=== PATIENT | male | born 1970 ===

== ENCOUNTER → 2020-02-14 | Outpatient (CLI) | payer OTHER ==
[~2020-02-14] MED LIST: [UNRECOGNIZED DRUG - REMARK]
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
== END | disposition home or self-care (01) ==
LOC: PNCL 08:18
PROVIDERS: ATTEND Anesthesiology
DX: M54.5 Low back pain (principal); M19.90 Unspecified osteoarthritis, unspecified site; G89.4 Chronic pain syndrome; Z98.890 Other specified postprocedural states
CPT/HCPCS: G0463

== ENCOUNTER → 2020-02-28 | Outpatient (CLI) | payer OTHER ==
[~2020-02-28] MED LIST changes: +BUPIVACAINE MPF 0.25% 10 ML VIAL. ONE; +IOHEXOL 180 MG/ML 10 ML VIAL. ONE; +methylPREDNISolone ACETATE 40 MG/ML VIAL. ONE; +methylPREDNISolone ACETATE 80 MG/ML VIAL. ONE
--- NOTE | 2020-02-28 08:47 | PDOC ---
Progress Note - Pain Clinic Date of Service: DOS: DATE: 02/28/20 TIME: 08:44 Diagnosis: Dx: Lumbar degenerative disc disease with lumbar and lumbosacral spondylosis History or Present Illness: HPI: 49-year male returns follow-up status post initial evaluation preauthorization for bilateral facet joint injections. Patient ports still significant pain in the low back bilaterally right slightly greater than left but present bilaterally in the low back itself with occasional radiation of the posterior gluteus but not into the lower extremities. Patient points to a 7 on scale 10 is worse with the past week for an average for his lesions for today patient describes as sharp and tight cramping sometimes constant with walking standing changing positions or prolonged sitting. Patient reports no new motor or sensory deficits no new bowel or bladder incontinence reports it wakes him sleep occasionally but not more than every 7 hours. Patient also has some pain in the neck as well as the upper back but his low back pain is his main complaint. Physical Exam: VS: Blood pressure is 154/86 pulse 67 respirations 18 temperature 97.6 3 Fahrenheit weight is 176 pounds PE: PHYSICAL EXAMINATION: GENERAL: The patient is awake, alert, oriented, appropriate, very pleasant demeanor HEENT: Shows normocephalic, atraumatic. Extraocular movements are intact and symmetrical. Oral cavity: Mucous membranes moist and pink. Dentition is intact. NECK: Shows anterior throat supple without palpable lymphadenopathy noted. Swallow reflex symmetrical. CHEST: Shows normal on inspection. Breath sounds are clear bilaterally. HEART: Shows S1, S2 clear. No murmurs auscultated. ABDOMEN: Soft, nontender, nondistended. No palpable organomegaly is noted. No rebound or guarding demonstrated. BACK: Shows spine grossly in the midline. Normal-appearing cervical lordotic curvature. There is slightly increased thoracic kyphosis, some minor flattening of the lumbar lordotic curvature. Lumbar paraspinous muscles show symmetrical on inspection, on palpation shows some moderate tenderness diffusely throughout the upper, middle and lower distribution of the paraspinous muscles bilaterally and also into the lower thoracic paraspinous musculature, firm and tender, but without specific trigger points, without radiation of pain. The patient has good rotational motion of the lumbar spine, both laterally as well as extension and flexion without significant difficulty. No tenderness over the spinous processes, sacrum or sacroiliac regions. EXTREMITIES: Lower extremities show deep tendon reflexes 2+ in the patellar and tendo calcaneus tendons. Motor exam is 5 on a scale of 5 with right dorsiflexion, extension, quadriceps and hamstring flexion and 5/5 on the left. Peripheral pulses are 2+ posterior tibial. [] peripheral edema is noted bilaterally. Lower extremities are warm and dry to touch, equal in color and appearance. SKIN: Shows warm and dry, good turgor. No edema. No sores, rashes or bruising throughout. Procedure: Procedure: Options were discussed with the patient. Patient's old chart was reviewed his current medication regimen updated current review of systems updated today as well and we will proceed with a bilateral L4-5 and L5-S1 facet joint injections. Risks again discussed including but not limited to bleeding infection possibility of endovascular injection sequelae epidural hematoma subsequent neurological compromise dural puncture headache spinal cord and nerve damage side effects steroid medication and portals chronic pain control. Patient understands wished to proceed. Patient return to clinic in approximate 2 weeks for follow-up was counseled as to return appointment activity level and side effects to be aware. Medication Injected: Med Injected: Under sterile prep and drape using C-arm fluoroscopic guidance AP and lateral and oblique views, bilateral L4-5 and L5-S1 facet joint injections, medications injected: 120 mg Depo-Medrol +4 cc 0.25% bupivacaine +2 cc contrast. Condition at discharge stable patient tolerated the procedure well and no complications. Condition at Discharge: Condition at Discharge: Condition at discharge is stable patient tolerated the procedure well had no complications BIMAL LAI MD Feb 28, 2020 08:47
== END | disposition home or self-care (01) ==
LOC: PNCL 08:17
PROVIDERS: ATTEND Anesthesiology
DX: M47.817 Spondylosis without myelopathy or radiculopathy, lumbosacral region (principal); M51.36 Other intervertebral disc degeneration, lumbar region; Z98.890 Other specified postprocedural states
CPT/HCPCS: 64635; 64636; J1030; J1040; J3490; Q9965

== ENCOUNTER → 2020-03-13 | Outpatient (CLI) | payer OTHER ==
--- NOTE | 2020-03-13 10:14 | PDOC ---
Progress Note - Pain Clinic Date of Service: DOS: DATE: 03/13/20 TIME: 10:09 Diagnosis: Dx: Lumbar degenerative disc disease with lumbar and lumbosacral spondylosis History or Present Illness: HPI: 49-year male returns follow-up status post bilateral L4-5 and L5-S1 facet joint injections. Patient reports about 75 to 80% improvement initially for the first week to 2 weeks patient reports the pain was decreased with pain returning now in the low back bilaterally slightly worse on the right than left patient which is worse with walking standing running changing positions extension of the lumbar spine and loading of the axial lumbar spine as well. Patient reports an 8 on a scale of 10 is worse over the past week 5 on average 3 at its least is a 5 today patient endorses stabbing radiating aching sharp at times tight in the back more in the middle and to the right but also on the left patient reports no new motor or sensory deficits does not awaken from sleep at night better with laying down or sitting but again much worse with walking standing especially with exercise and running. Physical Exam: VS: Blood pressure 123/85 pulse 61 respirations 18 temperature 97.5 F height is 70 inches and weight is 179 pounds PE: PHYSICAL EXAMINATION: GENERAL: The patient is awake, alert, oriented, appropriate, very pleasant demeanor HEENT: Shows normocephalic, atraumatic. Extraocular movements are intact and symmetrical. Oral cavity: Mucous membranes moist and pink. NECK: Shows anterior throat supple without palpable lymphadenopathy noted. Swallow reflex symmetrical. CHEST: Shows normal on inspection. Breath sounds are clear bilaterally, no rales rhonchi wheezes auscultated. HEART: Shows S1, S2 clear. No murmurs auscultated. ABDOMEN: Soft, nontender, nondistended. No palpable organomegaly is noted. No rebound or guarding demonstrated. BACK: Shows spine grossly in the midline. Normal-appearing cervical lordotic curvature. There is slightly increased thoracic kyphosis, some minor flattening of the lumbar lordotic curvature. Lumbar paraspinous muscles show symmetrical on inspection, on palpation shows some moderate tenderness diffusely throughout the upper, middle and lower distribution of the paraspinous muscles bilaterally and also into the lower thoracic paraspinous musculature, firm and tender, but without specific trigger points, without radiation of pain. The patient has good rotational motion of the lumbar spine, both laterally as well as extension and flexion without significant difficulty. No tenderness over the spinous processes, sacrum or sacroiliac regions. EXTREMITIES: Lower extremities show deep tendon reflexes 2+ in the patellar and tendo calcaneus tendons. Motor exam is 5 on a scale of 5 with right dorsiflexion, extension, quadriceps and hamstring flexion and 5/5 on the left. Peripheral pulses are 2+ posterior tibial. no peripheral edema is noted bilaterally. Lower extremities are warm and dry to touch, equal in color and appearance. SKIN: Shows warm and dry, good turgor. No edema. No sores, rashes or bruising throughout. Procedure: Procedure: Options were discussed with the patient. Patient will chart reviews her current medication regimen updated current review of systems updated today as well. We will proceed with a bilateral L4-5 and L5-S1 facet joint injections today with fluoroscopic guidance. Risks were again discussed including but not limited to bleeding infection possibility of epidural hematoma subsequent neurological compromise dural puncture headache spinal cord and or nerve damage side effects of steroid medication and poor results chronic pain control. Patient understands wished to proceed patient return to clinic in approximate 2 weeks for follow-up with calcis return appointment to [facility] and side effects be aware. Medication Injected: Med Injected: Under sterile prep and drape using C-arm fluoroscopic guidance AP and lateral and oblique views, bilateral L4-5 and L5-S1 facet joint injections, medications injected: 120 mg Depo-Medrol +4 cc 0.25% bupivacaine +2 cc contrast. Condition at discharge stable patient tolerated the procedure well and no complications. Condition at Discharge: Condition at Discharge: Condition at discharge is stable, patient tolerated the procedure well,had no complications BIMAL LAI MD Mar 13, 2020 10:14
== END | disposition home or self-care (01) ==
LOC: PNCL 09:14
PROVIDERS: ATTEND Anesthesiology
DX: M47.817 Spondylosis without myelopathy or radiculopathy, lumbosacral region (principal); M51.36 Other intervertebral disc degeneration, lumbar region; G89.29 Other chronic pain
CPT/HCPCS: 64635; 64636; J1030; J1040; J3490; Q9965